=== PATIENT | male | born 1985 | race Caucasian/White ===

== ENCOUNTER 2020-09-11 06:52 | Observation (INO) | payer BC, SELFPAY ==
[2020-09-11] MEDS ORDERED: HYDROCODONE/APAP 10/325 TAB ONE (07:14)
[2020-09-11] MEDS ORDERED: TETANUS & DIPHTHERIA TOX,ADULT 0.5 ML VIAL ONE (07:27)
[2020-09-11] MEDS ORDERED: MORPHINE 4 MG/ML SYR ONE (07:37)
[2020-09-11] MEDS ORDERED: ONDANSETRON 4 MG/2 ML VIAL ONE (07:38)
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
[2020-09-11 08:27] LABS: Absolute Lymphocytes (CBC) 1.4 K/uL (0.7-4.9); Basophils % 0.5 % (0-1.3); Hematocrit 43.9 % (39.6-49.0); Lymphocytes % 11.1 % (15.3-44.8); MPV 9.1 fL (7.6-11.3); RBC Red Blood Cell Count 5.05 M/uL (4.33-5.43)
[2020-09-11] MEDS ORDERED: CEFAZOLIN SODIUM 1 GM/VIAL ONE (08:37)
[2020-09-11 08:39] LABS: Potassium 4.5 mmol/L (3.5-5.1)
--- NOTE | 2020-09-11 08:55 | RAD REPORT ---
EXAM DESCRIPTION: RAD - Hand Right 3 View - 09/11/2020 8:00 am CLINICAL HISTORY: Pain;Smash injury COMPARISON: No comparisons FINDINGS: Fracture of the second, third and fourth metatarsals are seen with mild angulation and mod erate soft tissue swelling. No dislocation evident.
[2020-09-11] MEDS ORDERED: Ringers Lactate 1,000 ML IV ONE (09:01)
[2020-09-11] MEDS ORDERED: FENTANYL CITR 100 MCG/2 ML ONE (09:05)
[2020-09-11] MEDS ORDERED: NS 0.9% VIAL 10 ML ONE (09:05)
[2020-09-11] MEDS ORDERED: LIDOCAINE 1% MPF 5 ML VIAL ONE (09:05)
[2020-09-11] MEDS ORDERED: dexAMETHasone 10 MG/ML VIAL ONE (09:05)
[2020-09-11] MEDS ORDERED: ROPLVACAINE HCL 40 ML ONE (09:06)
[2020-09-11] MEDS ORDERED: MIDAZOLAM HCL 2 MG/2 ML INJ ONE (09:06)
[2020-09-11] MEDS ORDERED: propofoL 200 MG/20 ML VIAL IV ONE (09:37)
[2020-09-11] MEDS ORDERED: LIDOCAINE 2% MPF 5 ML VIAL ONE (09:37)
[2020-09-11] MEDS ORDERED: KETOROLAC 30 MG/ML INJ ONE (10:33)
--- NOTE | 2020-09-11 10:59 | RAD REPORT ---
EXAM DESCRIPTION: RAD - Fluoroscopy <1 Hour - 09/11/2020 10:37 am CLINICAL HISTORY: PINNING OF RIGHT HAND 2ND,3RD,4TH METACARPALS COMPARISON: No comparisons FINDINGS: Fluoroscopy time: 1.3 minutes.
[2020-09-11 11:25] VITALS: BP 112/67; TEMP 97.4; O2SAT 96
[2020-09-11] MEDS ORDERED: CODEINE 30MG/APAP 300MG TAB ONE (11:28)
--- NOTE | 2020-09-11 11:54 | OP ---
Surgeon: Larry Downey MD Preoperative Diagnosis: Open fracture of the right second, third and fourth metacarpals and subungua l hematoma of the right thumb. Postoperative Diagnosis: Open fracture of the right second, third and fourth metacarpals and subungu al hematoma of the right thumb. Procedures Performed: Debridement of skin and subcutaneous tissue, simple closure 1.5 cm wound; evac uation of subungual hematoma of right thumb; percutaneous pinning and closed reduction of the second, third and fourth metacarpals; application of splint. Anesthesia: General. Procedure In Detail: After satisfactory induction of general anesthesia, the right arm was prepped w ith Betadine scrub and paint. Dry sterile drapes were applied in the usual manner. The arm was elev ated, exsanguinated with an Esmarch. Tourniquet was inflated to 250 mmHg. Hand was placed on the Ro to Lock table. A scalpel was used to debride skin and subcutaneous tissue. The wound was then jet l avaged, irrigated with 3 L of dilute Betadine solution. Lacerations over the third and fourth metaca rpal region about 1.5 cm wound. Exploration of wound revealed no tendons visible in the wound. The patient then had percutaneous pinning done and this was done by placing pins from distal to proximal with MCP 90 degrees. A 0.045 K-wire was used. Two wires were placed at each of the metacarpals seco nd, third and fourth. Upon completion of this, the subungual hematoma was evacuated by placing sciss ors underneath the nail plate. Then, the 4-0 Prolene was used to close the wound vertical mattress, simple sutures. Dressed with Xeroform and then Kerlix and a splint holding the wrist in 10 degrees o f dorsiflexion, MCP 90, PIP and DIP in extension. The patient tolerated the procedure well and returned to Recovery. GH/MODL Voice ID: [id number] Report ID: [id number]
[2020-09-11] MEDS ORDERED: VITAMIN D 1000 UNIT TAB ONE (12:35)
[2020-09-11] MEDS ORDERED: ASCORBIC ACID 500 MG TABLET ONE (13:46)
--- NOTE | 2020-09-12 16:10 | EKG ---
Test Date: 2020-09-11 Test Time: 08:24:23 Brick Sorter: BRANDON MEASUREMENT RESULTS: Intervals: Rate: 63 WA: 114 QRSD: 98 QT: 370 QTc: 378 [place]: P: 43 WA: 114 QRS: 39 T: 24 INTERPRETIVE STATEMENTS: Normal sinus rhythm Normal ECG No previous ECG available for comparison Electronically Signed On 09-12-20 16:05:46 CHRONIC DISEASE EPIDEMIOLOGIST by Tera Broderick
== END 2020-09-11 11:53 | disposition home or self-care (01) ==
LOC: ER 06:52 → ERHOLD 08:18
PROVIDERS: ADMIT Family Medicine; ATTEND Family Medicine
PROC: 0PSP34Z Reposition Right Metacarpal with Internal Fixation Device, Percutaneous Approach (ICD-10-PCS; 2020-09-11)
PROC: 0PSP34Z Reposition Right Metacarpal with Internal Fixation Device, Percutaneous Approach (ICD-10-PCS; 2020-09-11)
PROC: 0HQFXZZ Repair Right Hand Skin, External Approach (ICD-10-PCS; 2020-09-11)
PROC: 0PSP34Z Reposition Right Metacarpal with Internal Fixation Device, Percutaneous Approach (ICD-10-PCS; principal; 2020-09-11 09:30)
DX: S62.300B Unspecified fracture of second metacarpal bone, right hand, initial encounter for open fracture (principal); S62.302B Unspecified fracture of third metacarpal bone, right hand, initial encounter for open fracture; S62.304B Unspecified fracture of fourth metacarpal bone, right hand, initial encounter for open fracture; S60.111A Contusion of right thumb with damage to nail, initial encounter; R06.83 Snoring; F90.9 Attention-deficit hyperactivity disorder, unspecified type
CPT/HCPCS: 36415; 76000; 80048; 85025; 86850; 86900; 86901; 90471; 90714; 93005; 96374; 96375; 99285; J0690; J1100; J2250; J2405; J2704; J2795; J3010; J7120